=== PATIENT | male | born 1950 ===

== ENCOUNTER 2017-06-09 08:11 | Emergency (ER) | payer MEDICARE ==
[2017-06-09] MEDS ORDERED: MORPHINE IV ONE ×2 (08:39→09:56)
--- NOTE | 2017-06-09 08:46 | Emergency Department Report ---
ED Extremity Problem HPI - General Chief complaint: Extremity Injury, Lower Stated complaint: LEFT LEG PAIN,SOB Time Seen by Provider: 06/09/17 08:29 Source: patient, EMS Mode of arrival: Wheelchair Limitations: No Limitations - History of Present Illness Initial comments: Patient is a 66-year-old male with a history of peripheral vascular disease here with complaint of left foot pain. Describes his pain is worsening on the left since Saturday. He was seen by his vascular surgeon on and scheduled for surgery next Saturday. His foot is extremely painful and has been worsening since . He feels that his foot is cold to touch. He has a history of vascular intervention 2 years ago on the same leg. Denies fevers chills nausea vomiting. Pain is not relieved by hydrocodone. -: Gradual Location: left, lower extremity Radiation: none Consistency: constant Improves with: nothing Worsens with: exertion, palpation - Related Data Home Medications Medication Instructions Recorded Confirmed Last Taken Aspirin [Aspirin TAB] 325 mg PO DAILY 06/09/17 06/09/17 06/09/17 Gabapentin [Neurontin] 300 mg PO BID 06/09/17 06/09/17 06/09/17 HYDROcodone/APAP 5-325 [[place] 1 each PO Q4HR PRN 06/09/17 06/09/17 06/09/17 5/325] Pantoprazole [Protonix] 40 mg PO QDAY 06/09/17 06/09/17 06/09/17 Simvastatin [Zocor TAB] 40 mg PO QHS 06/09/17 06/09/17 06/09/17 Valsartan/Hydrochlorothiazide 1 tab PO QDAY 06/09/17 06/09/17 06/09/17 [Diovan Hct 80-12.5 mg] Allergies Allergy/AdvReac Type Severity Reaction Status Date / Time No Known Allergies Allergy Verified 06/09/17 09:56 ED Review of Systems ROS: Stated complaint: LEFT LEG PAIN,SOB Other details as noted in HPI Comment: All other systems reviewed and negative Constitutional: denies: chills, fever Eyes: denies: eye pain, eye discharge, vision change ENT: denies: ear pain, throat pain Respiratory: denies: cough, shortness of breath, wheezing Cardiovascular: denies: chest pain, palpitations Endocrine: no symptoms reported Gastrointestinal: denies: abdominal pain, nausea, diarrhea Genitourinary: denies: urgency, dysuria Musculoskeletal: denies: back pain, joint swelling, arthralgia Skin: change in color. denies: rash, lesions Neurological: denies: headache, weakness, paresthesias Psychiatric: denies: anxiety, depression Hematological/Lymphatic: denies: easy bleeding, easy bruising ED Past Medical Hx - Past Medical History Previous Medical History?: Yes - Surgical History Past Surgical History?: Yes Additional Surgical History: [place], Left leg - Social History Smoking Status: Former Smoker Substance Use Type: Alcohol - Medications Home Medications: Home Medications Medication Instructions Recorded Confirmed Last Taken Type Aspirin [Aspirin TAB] 325 mg PO DAILY 06/09/17 06/09/17 06/09/17 History Gabapentin [Neurontin] 300 mg PO BID 06/09/17 06/09/17 06/09/17 History HYDROcodone/APAP 5-325 [[place] 1 each PO Q4HR PRN 06/09/17 06/09/17 06/09/17 History 5/325] Pantoprazole [Protonix] 40 mg PO QDAY 06/09/17 06/09/17 06/09/17 History Simvastatin [Zocor TAB] 40 mg PO QHS 06/09/17 06/09/17 06/09/17 History Valsartan/Hydrochlorothiazide 1 tab PO QDAY 06/09/17 06/09/17 06/09/17 History [Diovan Hct 80-12.5 mg] ED Physical Exam - General Limitations: No Limitations General appearance: alert, in no apparent distress - Head Head exam: Present: atraumatic, normocephalic - Eye Eye exam: Present: normal appearance, PERRL, EOMI - ENT ENT exam: Present: mucous membranes moist - Neck Neck exam: Present: normal inspection - Respiratory Respiratory exam: Present: normal lung sounds bilaterally. Absent: respiratory distress - Cardiovascular Cardiovascular Exam: Present: regular rate, normal rhythm. Absent: systolic murmur, diastolic murmur, rubs, gallop - GI/Abdominal GI/Abdominal exam: Present: soft, normal bowel sounds - Rectal Rectal exam: Present: deferred - Extremities Exam Extremities exam: Present: normal inspection - Expanded Lower Extremity Exam Left Lower Leg exam: Present: tenderness Foot/Toe exam: Present: tenderness Neuro vascular tendon exam: Present: pulse deficit (unable to Doppler DP or PT pulses), abnormal cap refill, extremity cold to touch - Back Exam Back exam: Present: normal inspection - Neurological Exam Neurological exam: Present: alert, oriented X3 - Psychiatric Psychiatric exam: Present: normal affect, normal mood - Skin Skin exam: Present: warm, dry, intact, normal color. Absent: rash ED Course Vital Signs 06/09/17 06/09/17 06/09/17 08:17 08:59 10:16 Temperature 98.4 F Pulse Rate 105 H 87 91 H Respiratory 20 18 Rate Blood Pressure 181/119 Blood Pressure 211/114 172/101 [Right] O2 Sat by Pulse 100 100 98 Oximetry ED Medical Decision Making - Lab Data Result diagrams: 06/09/17 10:00 06/09/17 08:30 Laboratory Results - last 24 hr 06/09/17 06/09/17 06/09/17 08:30 08:30 08:30 WBC 10.3 RBC 5.61 H Hgb 14.7 Hct 46.0 H MCV 82 L MCH 26 L MCHC 32 RDW 15.6 H Plt Count 287 Lymph % (Auto) 15.5 [place] % (Auto) 6.9 Eos % (Auto) 0.6 Baso % (Auto) 1.1 Lymph # 1.6 [place] # 0.7 Eos # 0.1 Baso # 0.1 Seg Neutrophils % 75.9 H Seg Neutrophils # 7.9 H PT 13.8 INR 1.01 Sodium 141 Chloride 96.5 L Carbon Dioxide 23 BUN 17 Creatinine 1.3 Estimated GFR 55 BUN/Creatinine Ratio 13.07 Glucose 169 H Calcium 9.9 Total Bilirubin 0.80 Total Protein 9.3 H Albumin 4.5 Albumin/Globulin Ratio 0.9 - Medical Decision Making 66-year-old male with a history of peripheral vascular disease here with complaint of worsening left foot pain. He is supposed to have a vascular intervention on Saturday with his past with surgeon Dr. Edwards. His foot is cold and blue and he does not have dopplerable pulses. He likely needs and interventions [place]. Plan to check labs treat pain and will discuss transfer versus vascular intervention here at [facility]. 9:30 AM discussed case with Dr. castellano of vascular surgery who recommended that I speak with Dr. Edwards at [facility]. 9:45 AM discussed case with Dr. Edwards recommended transfer to the emergency department at [facility]. Asked for me to initiate heparin drip with bolus. 10 AM discussed case with Dr. Rain at [facility] in waiting acceptance. 10:15 AM patient accepted and transferred to [facility] under Dr. Edwards. Portions of this chart were dictated with dictation software. There may be dictation errors contained within this note. Critical Care Time: Yes Critical care time in (mins) excluding proc time.: 60 Critical care attestation.: If time is entered above; I have spent that time in minutes in the direct care of this critically ill patient, excluding procedure time. Critical Care Time: 60 minutes ED Disposition Clinical Impression: Arterial occlusion, lower extremity, Peripheral vascular disease Disposition: [id number] ANOTHER TYPE HLTHCARE Is pt being admited?: No Condition: Stable Instructions: Peripheral Vascular Disorders (ED) Referrals: PRIMARY CARE, [Primary Care Provider] - 3-5 Days
[2017-06-09 09:07] LABS: Basophils % (Auto) 1.1 % (0.0-1.8); Eosinophils % (Auto) 0.6 % (0.0-4.3); Hemoglobin 14.7 gm/dl (11.8-15.2); Mean Corpuscular HGB Conc 32 % (32-34); Mean Corpuscular Hemoglobin 26 pg (28-32); Mean Corpuscular Volume 82 fl (84-94); Platelet Count 287 K/mm3 (140-440); Red Blood Count 5.61 M/mm3 (3.65-5.03); Red Cell Distribution Width 15.6 % (13.2-15.2); White Blood Count 10.3 K/mm3 (4.5-11.0)
[2017-06-09 09:16] LABS: INR 1.01 (0.87-1.13)
[2017-06-09 09:27] LABS: Albumin 4.5 g/dL (3.9-5); Albumin/Globulin Ratio 0.9 %; BUN/Creatinine Ratio 13.07; Bilirubin,Total 0.8 mg/dL (0.1-1.2); Calcium 9.9 mg/dL (8.4-10.2); Chloride 96.5 mmol/L (98-107); Total Protein 9.3 g/dL (6.3-8.2)
[2017-06-09] MEDS ORDERED: HEPARIN 10,000 UNITS/10 ML IV ONE (09:51)
[2017-06-09 09:58] LABS: Potassium 4.5 mmol/L (3.6-5.0)
[2017-06-09] MEDS ORDERED: HEPARIN/ 0.45% NACL-25,000 UNIT/500 ML 25,000 UNIT/500 ML BAG IV SCH (10:00)
[2017-06-09 10:12] LABS: Hematocrit 45.3 % (35.5-45.6); Hemoglobin 14.5 gm/dl (11.8-15.2)
[2017-06-09 10:23] LABS: INR 1.02 (0.87-1.13)
[2017-06-09 10:24] LABS: Partial Thromboplastin Time 30.5 Sec. (24.2-36.6)
[2017-06-09 11:07] VITALS: BP 176/99
== END 2017-06-09 11:07 | disposition other institution (70) ==
LOC: ED 08:11
DX: I74.3 Embolism and thrombosis of arteries of the lower extremities (principal); I73.9 Peripheral vascular disease, unspecified; Z87.891 Personal history of nicotine dependence; Z79.82 Long term (current) use of aspirin; Z79.01 Long term (current) use of anticoagulants
CPT/HCPCS: 36415; 80053; 85014; 85018; 85025; 85049; 85610; 85730; 86850; 86900; 86901; 96374; 96375; 96376; 99291; J1644; J2270